=== PATIENT | female | born 1990 | race Caucasian/White ===

== ENCOUNTER 2018-06-30 17:39 | Emergency (ER) | payer OTHER ==
--- NOTE | 2018-06-30 19:16 | ED ---
Abdominal Pain HPI - General Source: patient, RN notes reviewed, old records reviewed Mode of arrival: ambulatory Limitations: no limitations <Magdalena Magana - Last Filed: 07/01/18 14:39> <Hailey Ham - Last Filed: 07/03/18 02:05> - General Chief Complaint: Abdominal Pain Stated Complaint: Stomach pain/ Time Seen by Provider: 06/30/18 19:02 - History of Present Illness Initial Comments: Patient is a 27-year-old female who presents emergency room today with complaints of left-sided abdominal pain times one day. Patient reports that she is approximately 6 weeks . Patient reports that her pain seems to radiate from her left lower quadrant towards her groin. Patient states that she 's had no vaginal bleeding. She had one previous miscarriage. She does not have an [employer] SALESPERSON as of this time, but she does plan to follow-up with Dr. Gonzales. Patient states that she has had no nausea that she's had some episodes of vomiting with early . Patient states that she has had no fevers or chills. She denies any dysuria hematuria. (Magdalena Magana) - Related Data Home Medications Medication Instructions Recorded Confirmed Albuterol Inhaler [Ventolin Hfa 2 puff INHALATION RT-Q6H PRN 06/30/18 06/30/18 Inhaler] Pnv No.95/Ferrous Fum/Folic AC 1 tab PO DAILY 06/30/18 06/30/18 [ Multivitamin Tablet] Allergies Allergy/AdvReac Type Severity Reaction Status Date / Time No Known Allergies Allergy Verified 06/30/18 18:58 Review of Systems ROS Other: All systems not noted in ROS Statement are negative. <Magdalena Magana - Last Filed: 07/01/18 14:39> ROS Other: All systems not noted in ROS Statement are negative. <Hailey Ham - Last Filed: 07/03/18 02:05> ROS Statement: Those systems with pertinent positive or pertinent negative responses have been documented in the HPI. Past Medical History Past Medical History: No Reported History History of Any Multi-Drug Resistant Organisms: MRSA Date of last positivie culture/infection: 2003 MDRO Source:: leg Past Surgical History: No Surgical Hx Reported Past Psychological History: Depression Smoking Status: Current every day smoker Past Alcohol Use History: None Reported Past Drug Use History: Marijuana <Magdalena Magana - Last Filed: 07/01/18 14:39> General Exam Limitations: no limitations General appearance: alert, in no apparent distress Head exam: Present: atraumatic, normocephalic, normal inspection Eye exam: Present: normal appearance, PERRL, EOMI. Absent: scleral icterus, conjunctival injection, periorbital swelling ENT exam: Present: normal exam, mucous membranes moist Neck exam: Present: normal inspection. Absent: tenderness, meningismus, lymphadenopathy Respiratory exam: Present: normal lung sounds bilaterally. Absent: respiratory distress, wheezes, rales, rhonchi, stridor Cardiovascular Exam: Present: regular rate, normal rhythm, normal heart sounds. Absent: systolic murmur, diastolic murmur, rubs, gallop, clicks GI/Abdominal exam: Present: soft, normal bowel sounds. Absent: distended, tenderness, guarding, rebound, rigid Extremities exam: Present: normal inspection, full ROM, normal capillary refill. Absent: tenderness, pedal edema, joint swelling, calf tenderness Back exam: Present: normal inspection Neurological exam: Present: alert, oriented X3, CN II-XII intact Psychiatric exam: Present: normal affect, normal mood Skin exam: Present: warm, dry, intact, normal color. Absent: rash <Magdalena Magana - Last Filed: 07/01/18 14:39> <Hailey Ham - Last Filed: 07/03/18 02:05> - General Exam Comments Initial Comments: 27-year-old female. Alert and oriented. No distress. (Magdalena Magana) Vital Signs 06/30/18 06/30/18 18:23 21:02 Temperature 99.5 F 98.6 F Pulse Rate 88 86 Respiratory 16 18 Rate Blood Pressure 100/56 126/78 O2 Sat by Pulse 100 98 Oximetry Medical Decision Making - Lab Data Result diagrams: 06/30/18 20:05 06/30/18 20:05 - Radiology Data Radiology results: report reviewed <Magdalena Magana - Last Filed: 07/01/18 14:39> - Lab Data Result diagrams: 06/30/18 20:05 06/30/18 20:05 <Hailey Ham P - Last Filed: 07/03/18 02:05> - Medical Decision Making 27 year old female presetns with left sided abdominal pain for one day, she complains of some constiaption. She is 6 weeks . US shows viable IUP. Patient denies bleeding, and refuses pelvic exam. UA is normal. Labs are unermarkable. Patient has no other complaints. Patient informed symptoms related to constipation. She should follow up with PCP and OB. Return paramters discussed. (Mgadalena Magana) I was available for consultation in the emergency department. The history and physical exam were done by the midlevel provider. I was consulted for this patient's care. I reviewed the case with the midlevel provider and based on their presentation of the patient, I agree with the assessment, medical decision making and plan of care as documented. (Hailey Ham) - Lab Data Lab Results 06/30/18 06/30/18 06/30/18 Range/Units 19:30 20:05 20:05 WBC 11.6 H (3.8-10.6) k/uL RBC 3.99 (3.80-5.40) m/uL Hgb 12.8 (11.4-16.0) gm/dL Hct 38.3 (34.0-46.0) % MCV 96.0 (80.0-100.0) fL MCH 32.1 (25.0-35.0) pg MCHC 33.4 (31.0-37.0) g/dL RDW 11.9 (11.5-15.5) % Plt Count 289 (150-450) k/uL Neutrophils % 66 % Lymphocytes % 27 % Monocytes % 3 % Eosinophils % 2 % Basophils % 0 % Neutrophils # 7.6 (1.3-7.7) k/uL Lymphocytes # 3.2 (1.0-4.8) k/uL Monocytes # 0.4 (0-1.0) k/uL Eosinophils # 0.3 (0-0.7) k/uL Basophils # 0.0 (0-0.2) k/uL PT (9.0-12.0) sec INR (<1.2) APTT (22.0-30.0) sec Sodium (137-145) mmol/L Potassium (3.5-5.1) mmol/L Chloride (98-107) mmol/L Carbon Dioxide (22-30) mmol/L Anion Gap mmol/L BUN (7-17) mg/dL Creatinine (0.52-1.04) mg/dL Est GFR (CKD-EPI)AfAm (>60 ml/min/1.73 sqM) Est GFR (CKD-EPI)NonAf (>60 ml/min/1.73 sqM) Glucose (74-99) mg/dL Calcium (8.4-10.2) mg/dL Total Bilirubin (0.2-1.3) mg/dL AST (14-36) U/L ALT (9-52) U/L Alkaline Phosphatase (38-126) U/L Total Protein (6.3-8.2) g/dL Albumin (3.5-5.0) g/dL HCG, Quant mIU/mL Urine Color Light Yellow Urine Appearance Clear (Clear) Urine pH 6.5 (5.0-8.0) Ur Specific [place] 1.005 (1.001-1.035) Urine Protein Negative (Negative) Urine Glucose (UA) Negative (Negative) Urine Ketones Trace H (Negative) Urine Blood Negative (Negative) Urine Nitrite Negative (Negative) Urine Bilirubin Negative (Negative) Urine Urobilinogen <2.0 (<2.0) mg/dL Ur Leukocyte Esterase Negative (Negative) Blood Type A Positive Blood Type Recheck [facility] ONLY 06/30/18 06/30/18 Range/Units 20:05 20:05 WBC (3.8-10.6) k/uL RBC (3.80-5.40) m/uL Hgb (11.4-16.0) gm/dL Hct (34.0-46.0) % MCV (80.0-100.0) fL MCH (25.0-35.0) pg MCHC (31.0-37.0) g/dL RDW (11.5-15.5) % Plt Count (150-450) k/uL Neutrophils % % Lymphocytes % % Monocytes % % Eosinophils % % Basophils % % Neutrophils # (1.3-7.7) k/uL Lymphocytes # (1.0-4.8) k/uL Monocytes # (0-1.0) k/uL Eosinophils # (0-0.7) k/uL Basophils # (0-0.2) k/uL PT 10.6 (9.0-12.0) sec INR 1.0 (<1.2) APTT 26.2 (22.0-30.0) sec Sodium 138 (137-145) mmol/L Potassium 3.8 (3.5-5.1) mmol/L Chloride 107 (98-107) mmol/L Carbon Dioxide 23 (22-30) mmol/L Anion Gap 8 mmol/L BUN 8 (7-17) mg/dL Creatinine 0.46 L (0.52-1.04) mg/dL Est GFR (CKD-EPI)AfAm >90 (>60 ml/min/1.73 sqM) Est GFR (CKD-EPI)NonAf >90 (>60 ml/min/1.73 sqM) Glucose 106 H (74-99) mg/dL Calcium 9.1 (8.4-10.2) mg/dL Total Bilirubin 0.3 (0.2-1.3) mg/dL AST 22 (14-36) U/L ALT 22 (9-52) U/L Alkaline Phosphatase 30 L (38-126) U/L Total Protein 6.4 (6.3-8.2) g/dL Albumin 3.7 (3.5-5.0) g/dL HCG, Quant 36375.7 mIU/mL Urine Color Urine Appearance (Clear) Urine pH (5.0-8.0) Ur Specific [place] (1.001-1.035) Urine Protein (Negative) Urine Glucose (UA) (Negative) Urine Ketones (Negative) Urine Blood (Negative) Urine Nitrite (Negative) Urine Bilirubin (Negative) Urine Urobilinogen (<2.0) mg/dL Ur Leukocyte Esterase (Negative) Blood Type Blood Type Recheck - Radiology Data US hosws IUP measuring 6 weeks. (Magdalena Magana) Disposition Is patient prescribed a controlled substance at d/c from ED?: No Time of Disposition: 20:44 <Magdalena Magana - Last Filed: 07/01/18 14:39> <Hailey Ham - Last Filed: 07/03/18 02:05> Clinical Impression: Abdominal pain affecting , Constipation Disposition: HOME SELF-CARE Condition: Good Instructions: Abdominal Pain in (ED) Additional Instructions: Patient is encouraged to drink plenty of water and have a diet rich in fruits and vegetables or GERD bowel movements. There is any bleeding more severe pain Patient should return for reevaluation. Patient should have close follow-up with primary care physician as well as [employer]. Referrals: None,Stated [Primary Care Provider] - 1-2 days Mary Sofia MD [STAFF PHYSICIAN] - 1-2 days Kelsie Putnam DO [Doctor of Osteopathic Medicine] - 1-2 days
[2018-06-30 19:54] LABS: Appearance,Urine Clear (Clear); Bilirubin,Urine Negative (Negative); Blood,Urine Negative (Negative); Color,Urine Light Yellow; Glucose,Urine (UA) Negative (Negative); Ketones,Urine Trace (Negative); Leukocyte Esterase,Urine Negative (Negative); Nitrite,Urine Negative (Negative); PH, Urine 6.5 (5.0-8.0); Protein,Urine Negative (Negative); Specific Gravity,Urine 1.005 (1.001-1.035); Urobilinogen,Urine <2.0 mg/dL (<2.0)
--- NOTE | 2018-06-30 20:08 | US ---
EXAMINATION TYPE: Transabdominal DATE OF EXAM: 09/28/17 COMPARISON: NONE CLINICAL HISTORY: Pain. LLQ pain EXAM PERFORMED: Transabdominal (TA) EXAM MEASUREMENTS: GESTATIONAL AGE / DATING Physician Established: Not yet established Dates by LMP: (5 weeks/4 days) EDC: Dates by First Scan: No previous this is first scan Dates by Current Scan for: ( 6 weeks/6 days) EDC: 02/17/2019 MATERNAL ANATOMY Uterus: 9.0 x 6.2 x 6.0 cm Right Ovary: 2.9 x 1.3 x 1.8 cm Left Ovary: 2.9 x 1.9 x 2.3 cm Post CDS / Adnexa: wnl Presence of free fluid: no Presence of corpus luteal cyst: Yes left ovary Presence of subchorionic bleed: no GESTATION / SURVEY CRL: 0.85 cm (6 weeks/6 days) Yolk Sac (normal less than 6mm): 2mm Heart Rate: 144 bpm Rhythm: Normal IUP: Viable IUP Beta HcG (if available): Not available at this time Viable IUP 6w6d DALJIT 02/17/2019 HR 144 BPM IMPRESSION: No complicating process seen.
[2018-06-30 20:16] LABS: Basophils % (A) 0 %; Eosinophils # (A) 0.3 k/uL (0-0.7); Eosinophils % (A) 2 %; HCT 38.3 % (34.0-46.0); HGB 12.8 gm/dL (11.4-16.0); Lymphocytes # (A) 3.2 k/uL (1.0-4.8); Lymphocytes % (A) 27 %; MCH 32.1 pg (25.0-35.0); MCHC 33.4 g/dL (31.0-37.0); Mean Platelet Volume 6.7; Monocytes # (A) 0.4 k/uL (0-1.0); Monocytes % (A) 3 %; Neutrophils # (A) 7.6 k/uL (1.3-7.7); Neutrophils % (A) 66 %; Platelet Count 289 k/uL (150-450); RBC 3.99 m/uL (3.80-5.40); RDW 11.9 % (11.5-15.5); WBC 11.6 k/uL (3.8-10.6)
[2018-06-30 20:27] LABS: Partial Thromboplastin Time 26.2 sec (22.0-30.0); Prothrombin Time 10.6 sec (9.0-12.0)
[2018-06-30 20:28] LABS: ALT 22 U/L (9-52); AST 22 U/L (14-36); Albumin 3.7 g/dL (3.5-5.0); Alkaline Phosphatase 30 U/L (38-126); Anion Gap 8 mmol/L; Blood Urea Nitrogen 8 mg/dL (7-17); Calcium 9.1 mg/dL (8.4-10.2); Carbon Dioxide 23 mmol/L (22-30); Chloride 107 mmol/L (98-107); Glucose 106 mg/dL (74-99); Potassium 3.8 mmol/L (3.5-5.1); Sodium 138 mmol/L (137-145); Total Bilirubin 0.3 mg/dL (0.2-1.3); Total Protein 6.4 g/dL (6.3-8.2)
[2018-06-30 21:04] VITALS: BP 126/78; PULSE 86; RESP 18; TEMP 98.6
[2018-06-30 21:47] LABS: HCG,Quantitative Serum 71880.7 mIU/mL
== END 2018-06-30 21:04 | disposition home or self-care (01) ==
LOC: EC 17:39
DX: O99.611 Diseases of the digestive system complicating pregnancy, first trimester (principal); K59.00 Constipation, unspecified; O99.89 Other specified diseases and conditions complicating pregnancy, childbirth and the puerperium; R10.32 Left lower quadrant pain; O21.9 Vomiting of pregnancy, unspecified; O99.331 Smoking (tobacco) complicating pregnancy, first trimester; F17.200 Nicotine dependence, unspecified, uncomplicated; Z3A.01 Less than 8 weeks gestation of pregnancy; Z53.29 Procedure and treatment not carried out because of patient's decision for other reasons; Z86.14 Personal history of Methicillin resistant Staphylococcus aureus infection
CPT/HCPCS: 36415; 76801; 80053; 81003; 84702; 85025; 85610; 85730; 86900; 86901; 87086; 99284

== ENCOUNTER 2019-01-19 17:55 | Outpatient (CLI) | payer OTHER ==
[2019-01-19] MEDS ORDERED: LACTATED RINGERS 1,000 ML IV SCH (19:00)
[2019-01-19 19:15] LABS: Appearance,Urine Cloudy (Clear); Bacteria,Urine Rare /hpf; Bilirubin,Urine Negative (Negative); Blood,Urine Small (Negative); Color,Urine Yellow; Glucose,Urine (UA) Negative (Negative); Ketones,Urine Negative (Negative); Leukocyte Esterase,Urine Moderate (Negative); Mucus,Urine Moderate /hpf; Nitrite,Urine Negative (Negative); Protein,Urine 1+ (Negative); RBC,Urine 6 /hpf (0-5); Specific Gravity,Urine 1.034 (1.001-1.035); Squamous Epithelial Cell,Urine 10 /hpf (0-4); WBC,Urine 11 /hpf (0-5)
[2019-01-19 19:16] VITALS: BP 110/57; PULSE 86; RESP 17; TEMP 97.3
--- NOTE | 2019-02-12 11:24 | P.MSEPDOC ---
Presenting Problems - Arrival Data Date of Arrival on Unit: 01/19/19 Time of Arrival on Unit: 17:55 Mode of Transport: Wheelchair - Complaint OB-Reason for Admission/Chief Complaint: Pain Comment: Pt states having pain top of abdomen, non radiating. Pain is constant dull pain. per pt that occasionally is shooting/stingy pain rating 6-7 out of 10. Pt spoke with Dr. Morgan at last visit who had discussed with pt that it was most likely stretching of the uterus. Medical History - Information : 1 Para: 0 Term: 0 : 0 Abortions: Spontaneous or Elective: 0 Number of Living Children: 0 - Gestational Age Gestational Age by DALJIT (wks/days): 35 Weeks and 6 Days - History Complications: Smoker Review of Systems - Review of Systems Constitutional: No problems Breast: No problems ENT: No problems Cardiovascular: No problems Respiratory: No problems Gastrointestinal: No problems Genitourinary: No problems Musculoskeletal: No problems Neurological: No problems Skin: No problems Vital Signs - Temperature Temperature: 97.3 F Temperature Source: Temporal Artery Scan - Pulse Right Brachial Pulse Rate: 86 Pulse Assessment Method: Automatic Cuff - Respirations Respiratory Rate: 17 Oxygen Delivery Method: Room Air O2 Sat by Pulse Oximetry: 97 - Blood Pressure Right Arm Blood Pressure: 110/57 Blood Pressure Mean: 74 Blood Pressure Source: Automatic Cuff Medical Screen Scoring (Pre) - Cervical Exam Membranes: Intact - Uterine Contractions Frequency: > 5 minutes apart = 1 Duration: > 40 seconds = 2 Intensity: N/A - Maternal Vital Signs Maternal Temperature: N/A Maternal Blood Pressure: N/A Signs of Preeclampsia: N/A Maternal Respirations: N/A - Maternal Trauma Maternal Trauma: N/A - Assessment - Baby A Baseline FHR: 145 Heart Rate - NICHD Category: Category I (Normal) = 0 NST: Reactive Position: N/A Station: N/A - Total Score - Baby A Total Score - Baby A: 3 - Total Score - Baby B Total Score - Baby B: 3 - Total Score - Baby C Total Score - Baby C: 3 - Level of Risk - Baby A Level of Risk - Baby A: Low (0-5) - Level of Risk - Baby B Level of Risk - Baby B: Low (0-5) - Level of Risk - Baby C Level of Risk - Baby C: Low (0-5) Physician Notification (Pre) - Physician Notified Physician Notified Date: 01/19/19 Physician Notified Time: 18:50 Physician/Practitioner Notifed:: Dr. Bush Spoke With: Dr. Bush New Order Received: Yes (see order sets) Disposition - Disposition Discharge Date: 01/19/19 Discharge Time: 20:25 I agree with the RN Medical Screening Exam: No Physician's MSE Comment: Inadequate documentation Risk & Benefit of care provided described in d/c instruction: No Diagnosis: OTHER SPECIFIED COMPLICATIONS OF LABOR AND DELIVERY
== END 2019-01-19 20:25 | disposition home or self-care (01) ==
LOC: FBPOP 17:55
PROVIDERS: ATTEND Obstetrics & Gynecology
DX: O75.89 Other specified complications of labor and delivery (principal); Z3A.35 35 weeks gestation of pregnancy
CPT/HCPCS: 59025; 96360; 81001; G0463; 99213

== ENCOUNTER 2019-02-10 12:19 | Inpatient (IN) | payer OTHER ==
[2019-02-10] MEDS ORDERED: DINOPROSTONE 10 MG INSERT.ER VAGINAL ONE (13:48)
[2019-02-10] MEDS ORDERED: TERBUTALINE 1 MG/ML VIAL SQ PRN (14:26)
[2019-02-10] MEDS ORDERED: OXYTOCIN 10 UNIT/ML 1 ML VIAL IM PRN (14:26)
[2019-02-10] MEDS ORDERED: LIDOCAINE 0.5% (PF) 5 MG/ML (50 ML SDV) SQ PRN (14:26)
[2019-02-10] MEDS ORDERED: METHYLERGONOVINE 0.2 MG/ML 1 ML AMP IM PRN (14:26)
[2019-02-10] MEDS ORDERED: CARBOPROST TROMETHAMINE 250 MCG/ML 1 ML AMP IM PRN (14:26)
[2019-02-10] MEDS ORDERED: PENICILLIN G POTASSIUM 5,000,000 UNIT in DEXTROSE 5% IN WATER 100 ML IVPB STA ×2 (14:26)
[2019-02-10] MEDS ORDERED: OXYTOCIN 30 UNITS/500 ML NS 30 UNIT in SALINE 1 500ML.BAG IV SCH (14:30)
--- NOTE | 2019-02-10 14:39 | P.HPOB ---
History of Present Illness H&P Date: 02/10/19 Chief Complaint: IUGR This is a 28 year old 2 para 0010 woman with an estimated due date of 02/17/2019 based on the first trimester ultrasound. She is admitted at 39 weeks gestation for induction of labor secondary to findings of head circumference less than 1% and estimated weight less than 10%. Her cervix is unfavorable therefore she is admitted for delivery, cervical ripening with Cervidil followed by Pitocin and artificial rupture of membranes as indicated. The has otherwise been complicated by unexplained polyhydramnios at 19 weeks that spontaneously resolved at 29 weeks. MARA done in the office today was 13.3 cm with an incidental biophysical profile of 8 out of 8 and a reactive NST. She is also known group B strep positive. She complains today of some mild cramping and reports good movement. She denies on leakage of fluids or vaginal bleeding. Obstetric history: Missed AB in the first trimester in 2016 Laboratory data: Blood type A positive, antibody screen negative, rubella nonimmune, B-year-old nonreactive, hepatitis B surface antigen negative, HIV negative, gonorrhea and clinic cultures negative, glucose tolerance testing within normal limits, group B strep cultures positive. She is a current every day smoker and does have a previous history of marijuana use. Review of Systems All systems: negative Past Medical History Past Medical History: No Reported History History of Any Multi-Drug Resistant Organisms: MRSA Date of last positivie culture/infection: 2003 MDRO Source:: leg Past Surgical History: No Surgical Hx Reported Smoking Status: Current every day smoker Past Drug Use History: Marijuana Medications and Allergies Home Medications Medication Instructions Recorded Confirmed Type Pnv No.95/Ferrous Fum/Folic AC 1 tab PO DAILY 06/30/18 01/19/19 History [ Multivitamin Tablet] Allergies Allergy/AdvReac Type Severity Reaction Status Date / Time No Known Allergies Allergy Verified 01/19/19 18:19 Exam Intake and Output 02/09/19 02/10/19 02/10/19 22:59 06:59 14:59 Other: Weight 64.864 kg This is a pleasant, visibly gravid on female in no apparent distress. HEENT exam is unremarkable. Her breathing is unlabored and the heart is a regular rate and rhythm. The abdomen is gravid with a fundal height of 35 cm. Uterus is nontender. On pelvic exam the cervix is 1 cm dilated 50% effaced and the vertex in the -3 station. Extremities are free of any on swelling. heart tones are category 1 by external monitoring and she is irregularly carina. Assessment and Plan (1) IUGR (intrauterine growth restriction) Current Visit: Yes Status: Acute Code(s): GEJ7264 - SNOMED Code(s): 04922378 (2) 39 weeks gestation of Current Visit: Yes Status: Acute Code(s): Z3A.39 - 39 WEEKS GESTATION OF SNOMED Code(s): 79581095 (3) Tobacco abuse Current Visit: Yes Status: Acute Code(s): Z72.0 - TOBACCO USE SNOMED Code(s): 521943871 (4) GBS (group B Streptococcus carrier), +RV culture, currently Current Visit: Yes Status: Acute Code(s): O99.820 - STREPTOCOCCUS B CARRIER STATE COMPLICATING SNOMED Code(s): 0014350674990 Plan: This is a 28-year-old 2 para 0010 woman who is admitted at 39-2/7 weeks' gestation by first trimester ultrasound. She has findings of severe IUGR with head circumference less than the 1st percentile and estimated weight overall less than the 10th percentile. testing has been reassuring with a BPP of 8 out of 8 today and an MARA of 13.3 cm. That said at 39 weeks gestation on risk of IUFD is present therefore I have recommended on induction of labor. Her cervix is unfavorable therefore Cervidil has been placed. This ovary removed at 12 hours and Pitocin induction of labor initiated per protocol. She will need group B strep prophylactic antibiotics in active labor. status is currently reassuring by external monitoring testing done today. Patient has been counseled regarding risk benefits and alternatives were course of action and is in agreement with the above plan.
[2019-02-10 16:12] VITALS: BMI 27.0
[2019-02-10 17:23] LABS: Basophils % (A) 0 %; Eosinophils # (A) 0.2 k/uL (0-0.7); Eosinophils % (A) 2 %; HCT 37.6 % (34.0-46.0); HGB 12.8 gm/dL (11.4-16.0); Lymphocytes # (A) 2.7 k/uL (1.0-4.8); Lymphocytes % (A) 20 %; MCH 33.8 pg (25.0-35.0); MCHC 34.1 g/dL (31.0-37.0); MCV 99.1 fL (80.0-100.0); Mean Platelet Volume 8.5; Monocytes # (A) 0.5 k/uL (0-1.0); Monocytes % (A) 4 %; Neutrophils # (A) 9.9 k/uL (1.3-7.7); Neutrophils % (A) 74 %; Platelet Count 245 k/uL (150-450); RBC 3.79 m/uL (3.80-5.40); RDW 12.4 % (11.5-15.5); WBC 13.4 k/uL (3.8-10.6)
[2019-02-10] MEDS ORDERED: PENICILLIN G POTASSIUM 2,500,000 UNIT in DEXTROSE 5% IN WATER 100 ML IVPB SCH ×2 (18:00)
[2019-02-10] MEDS ORDERED: CITRIC ACID-SODIUM CITRATE 15 ML CUP PO ONE (18:26)
[2019-02-10] MEDS ORDERED: KETOROLAC 30 MG/ML 1 ML VIAL ONE (18:44)
[2019-02-10] MEDS ORDERED: ONDANSETRON 4 MG/2 ML VIAL ONE (18:44)
[2019-02-10] MEDS ORDERED: OXYTOCIN 10 UNIT/ML 1 ML VIAL ONE (18:44)
[2019-02-10] MEDS ORDERED: NALBUPHINE 10 MG/ML (1 ML AMP) ONE (18:44)
[2019-02-10] MEDS ORDERED: ePHEDrine SULFATE/0.9% NACL/PF 50 MG/5 ML SYRINGE IV ONE (18:44)
[2019-02-10] MEDS ORDERED: MORPHINE SULFATE (PF) 0.3 MG/0.3 ML SYR ONE (18:44)
[2019-02-10] MEDS ORDERED: fentaNYL (PF) 50 MCG/ML 2 ML AMP ONE (18:44)
[2019-02-10] MEDS: LACTATED RINGERS 1,000 ML IV SCH ×2 (19:22→20:50)
[2019-02-10] MEDS ORDERED: HYDROcodone/APAP 5-325MG 1 EACH TAB PO PRN (19:27)
[2019-02-10] MEDS ORDERED: METOCLOPRAMIDE 5 MG/ML 2 ML VIAL IVP PRN (19:27)
[2019-02-10] MEDS ORDERED: diphenhydrAMINE 50 MG/ML 1 ML VIAL IVP PRN ×2 (19:27)
[2019-02-10] MEDS ORDERED: ZOLPIDEM 5 MG TAB PO PRN (19:27)
[2019-02-10] MEDS ORDERED: ONDANSETRON 4 MG/2 ML VIAL IVP PRN ×2 (19:27→20:26)
[2019-02-10] MEDS ORDERED: NALOXONE 0.4 MG/ML 1 ML VIAL IV PRN ×2 (19:27→20:26)
[2019-02-10] MEDS ORDERED: diphenhydrAMINE 25 MG CAP PO PRN (19:27)
[2019-02-10] MEDS ORDERED: KETOROLAC 30 MG/ML 1 ML VIAL IVP PRN (19:27)
[2019-02-10] MEDS ORDERED: MEASLES-MUMPS-RUBELLA VACC/PF 12,500 UNIT/0.5 ML VIAL SQ ONE (19:27)
[2019-02-10] MEDS ORDERED: diphenhydrAMINE 50 MG CAP PO PRN (19:27)
[2019-02-10] MEDS ORDERED: OXYTOCIN 20 UNITS/1000 ML NS 1,000 ML IV SCH (19:30)
--- NOTE | 2019-02-10 19:33 | P.OP ---
Date of Procedure: 02/10/19 Preoperative Diagnosis: IUP at 39 weeks gestation IUGR Unfavorable cervix Nonreassuring heart rate pattern remote from delivery Postoperative Diagnosis: Same Procedure(s) Performed: Primary low transverse section Anesthesia: spinal Surgeon: Kesha Perez Pecan Sheller #1: Samira Gonzales Estimated Blood Loss (ml): 400 IV fluids (ml): 100 Urine output (ml): 300 Pathology: other (Placenta) Condition: stable Disposition: PACU Indications for Procedure: 28-year-old 2 para 0 woman admitted at 39-0/7 weeks gestation for induction of labor secondary to severe IUGR with head circumference less than the 1st percentile on recent ultrasound. Following admission she underwent Cervidil induction of labor. The Cervidil was in place for less than 3 hours and the patient had 2 bradycardic events each lasting approximately 5 minutes down to the 80 bpm. Overall she had good variability of the heart tones but was remote from delivery. The Cervidil was removed. It did not feel as a was present to the reintroduced Cervidil or start Pitocin. Therefore she was recommended to have a primary low transverse section. This of the procedure were reviewed with the patient include bleeding, infection, transfusion, injury to bowel bladder or ureters or other structures and or the infant. She understands implications for further pregnancies as well. Consent was obtained. Operative Findings: Male in the vertex presentation with Apgars of 9 at 1 minute and 9 at 5 minutes weighing 5 lbs. 6 oz., 2440 g. Head circumference 12.5 inches. Normal- appearing bilateral uterus tubes and ovaries. Description of Procedure: After the patient was met preoperatively and all questions were answered, she was taken to the operating room where spinal anesthetic was administered without incident. She was then positioned, prepped and draped in the dorsal supine position with a leftward tilt. Watson catheter was placed. After anesthetic was confirmed adequate, a low transverse skin incision was made following the pre- existing scar. This was carried down to the underlying fascia both sharply and with the electrocautery. The fascia was then incised in the midline and extended bilaterally with the Love scissors. The superior aspect of the fascial incision was elevated and the underlying rectus muscles dissected off sharply and with the electrocautery. The inferior aspect of the fascial incision was also elevated and the underlying rectus muscles dissected off sharply. The muscles were adherent in the midline. These were bluntly and the peritoneum was tented up with hemostats. The peritoneum was entered sharply with the Metzenbaum scissors. The peritoneal incision was extended inferiorly and superiorly with good visualization of the bladder. The bladder blade was placed. The vesicouterine peritoneum was identified, tented up and entered sharply, the bladder flap was created both sharply and digitally. A low transverse uterine incision was then made sharply and carried down to the underlying amniotic membranes. Membranes were ruptured and clear fluid was noted. The uterine incision was extended bilaterally bluntly. The 's head was delivered from the incision without difficulty. The nose and mouth were bulb suctioned. The rest of the infant was delivered onto the field without difficulty. And cut and the was taken to the warmer. An intact, three-vessel cord placenta was then manually removed and the uterus was exteriorized. The uterus was cleared of all clot and debris. The uterine incision was delineated with Collazo clamps. The uterine incision was then closed in a running locked fashion with 0 Vicryl suture. An imbricating layer of the same was placed. Additional [id number] sutures were placed where necessary along the incision for hemostasis. The uterus was then returned to the abdomen and the gutters were cleared of all clot and debris. The uterine incision was reinspected and Bovie electrocautery was utilized were necessary for hemostasis. The fascial edges, peritoneal edges and rectus muscles were inspected and Bovie electrocautery utilized were necessary for hemostasis. The fascia was then closed in a running fashion with 0 Vicryl suture. The subcuticular tissue was copiously suction irrigated and Bovie electrocautery utilized were necessary for hemostasis. 3-0 Vicryl suture was utilized to reapproximate the subcuticular tissue. The skin was then closed in a subcutaneous fashion with 4-0 Vicryl suture. All counts reported to me as correct by the operating room staff at the end of the procedure. The patient received antibiotics preoperatively and Pitocin following cord clamp. Mother and were both transported from the room in stable condition.
[2019-02-10] MEDS ORDERED: MORPHINE SULFATE 2 MG/ML SYRINGE IVP PRN (20:26)
[2019-02-11] MEDS: SENNOSIDES-DOCUSATE SODIUM 1 EACH TAB PO SCH ×3 (05:47→21:04)
[2019-02-11] MEDS: LACTATED RINGERS 1,000 ML IV SCH ×5 (06:31→23:09)
[2019-02-11 06:56] LABS: Basophils % (A) 0 %; Eosinophils # (A) 0.2 k/uL (0-0.7); Eosinophils % (A) 1 %; HCT 32.8 % (34.0-46.0); HGB 11.3 gm/dL (11.4-16.0); Lymphocytes # (A) 1.9 k/uL (1.0-4.8); Lymphocytes % (A) 14 %; MCH 33.7 pg (25.0-35.0); MCHC 34.4 g/dL (31.0-37.0); Mean Platelet Volume 8.4; Monocytes # (A) 0.6 k/uL (0-1.0); Monocytes % (A) 4 %; Neutrophils # (A) 10.5 k/uL (1.3-7.7); Neutrophils % (A) 79 %; Platelet Count 213 k/uL (150-450); RBC 3.35 m/uL (3.80-5.40); WBC 13.3 k/uL (3.8-10.6)
--- NOTE | 2019-02-11 10:47 | P.PNOBGPC ---
Subjective - Subjective Principal diagnosis: Postop day 1 Interval history: Required straight catheter 1 to empty bladder with Watson catheter removed. Otherwise feeling well. Patient reports: Reports appetite normal, Reports pain well controlled, Reports ambulating normally, Denies voiding normally, Denies dizzy ambulation [place]: doing well Objective - Vital Signs Latest vital signs: Vital Signs Temp Pulse Resp BP Pulse Ox 02/11/19 07:00 16 02/11/19 05:00 16 99 02/11/19 03:00 98.6 F 76 18 99/56 97 02/11/19 01:45 98.5 F 84 16 105/55 02/11/19 01:26 18 97 02/10/19 21:45 98.2 F 70 16 112/61 100 02/10/19 21:26 16 98 02/10/19 21:15 68 16 111/55 99 02/10/19 20:45 63 16 101/55 98 02/10/19 20:30 72 16 103/55 98 02/10/19 20:26 16 98 02/10/19 20:15 68 16 103/57 97 02/10/19 20:00 75 16 105/58 97 02/10/19 19:45 65 16 111/57 97 02/10/19 19:30 97.4 F L 60 16 109/58 96 02/10/19 13:45 98.2 F 58 L 16 112/64 Intake and Output 02/10/19 02/11/19 02/11/19 22:59 06:59 14:59 Output Total 900 800 Balance -900 -800 Output: Urine 900 800 Uretheral (Watson) 400 Other: Voiding Method Indwelling Catheter # Voids 0 # Emeses 0 - Exam Extremities: Present: normal. Absent: edema Abdomen: Present: normal appearance, soft Incision: Present: normal, dry, dressed Uterus: Present: normal, firm. Absent: tenderness - Labs Labs: Abnormal Lab Results - Last 24 Hours (Table) 02/10/19 02/11/19 Range/Units 15:45 06:43 WBC 13.4 H 13.3 H (3.8-10.6) k/uL RBC 3.79 L 3.35 L (3.80-5.40) m/uL Hgb 11.3 L (11.4-16.0) gm/dL Hct 32.8 L (34.0-46.0) % Neutrophils # 9.9 H 10.5 H (1.3-7.7) k/uL Assessment and Plan (1) IUGR (intrauterine growth restriction) Current Visit: Yes Status: Acute Code(s): NIB5655 - SNOMED Code(s): 42188732 (2) 39 weeks gestation of Current Visit: Yes Status: Acute Code(s): Z3A.39 - 39 WEEKS GESTATION OF SNOMED Code(s): 60514151 (3) Tobacco abuse Current Visit: Yes Status: Acute Code(s): Z72.0 - TOBACCO USE SNOMED Code(s): 320315570 (4) GBS (group B Streptococcus carrier), +RV culture, currently Current Visit: Yes Status: Acute Code(s): O99.820 - STREPTOCOCCUS B CARRIER STATE COMPLICATING SNOMED Code(s): 2419581526396 (5) Non-reassuring heart rate or rhythm affecting management of fetus Current Visit: Yes Status: Acute Code(s): CHZ7529 - SNOMED Code(s): 036415272 (6) S/P section Current Visit: Yes Status: Acute Code(s): Z98.891 - HISTORY OF UTERINE SCAR FROM PREVIOUS SURGERY SNOMED Code(s): 197852098 Plan: Postop day 1 status post primary low transverse section for nonreassuring heart tones in a known IUGR remote from delivery. She is recovering well. Routine management.
[2019-02-11] MEDS: IBUPROFEN 600 MG TAB PO PRN ×2 (16:16→23:54)
--- NOTE | 2019-02-11 19:27 | P.PN ---
Progress Note - Text Progress Note Date: 02/11/19 Postoperative day 1 status post section under spinal anesthesia, and i ntrathecal morphine given for postoperative analgesia, patient doing well, there is no anesthesia related complications, Patient had no headache, vital signs stable , Assessment and plan= postop day 1 status post , doing well there is no anesthesia related complication.
[2019-02-12] MEDS: LACTATED RINGERS 1,000 ML IV SCH ×4 (04:43→21:19)
[2019-02-12] MEDS: ACETAMINOPHEN TAB 325 MG TAB PO PRN (05:57)
[2019-02-12] MEDS: SENNOSIDES-DOCUSATE SODIUM 1 EACH TAB PO SCH ×2 (09:49→21:20)
[2019-02-12] MEDS: IBUPROFEN 600 MG TAB PO PRN ×2 (09:50→16:34)
--- NOTE | 2019-02-12 10:40 | P.PNOBGPC ---
Subjective - Subjective Principal diagnosis: Postop day 2 Interval history: Postop day 2 status post primary low transverse section for nonreassuring status and IUGR . The infant was exhibiting possible some signs of withdrawal and urine tox screen of was positive for methamphetamines. The patient is adamant that she has never done meth before , she has no known exposures to any other illegal substances or medications recently. She used marijuana early in the but last used was in November. She is on probation and Brian's a urine specimen once weekly with her prolapse office her and they have all been negative. Last maternal negative urine tox screen was 02/03/2019 per her report. Patient reports: Reports appetite normal, Reports voiding normally, Reports pain well controlled, Reports ambulating normally [place]: doing well (Monitoring for withdrawal in special care nursery.) Objective - Vital Signs Latest vital signs: Vital Signs Temp Pulse Resp BP Pulse Ox 02/12/19 08:00 98.3 F 81 18 120/72 98 02/12/19 00:00 98 F 67 18 102/57 98 02/11/19 20:00 97.6 F 73 18 112/74 98 02/11/19 16:00 98.9 F 83 16 104/65 Intake and Output 02/11/19 02/12/19 02/12/19 22:59 06:59 14:59 Intake Total 250 Balance 250 Intake: Oral 250 Other: # Voids 1 1 - Exam Extremities: Present: normal. Absent: edema Abdomen: Present: normal appearance, soft, distention (Mild) Incision: Present: normal, dry, intact. Absent: erythematous Uterus: Present: normal, firm. Absent: tenderness Assessment and Plan (1) IUGR (intrauterine growth restriction) Current Visit: Yes Status: Acute Code(s): XWD0369 - SNOMED Code(s): 83150266 (2) 39 weeks gestation of Current Visit: Yes Status: Acute Code(s): Z3A.39 - 39 WEEKS GESTATION OF SNOMED Code(s): 60945696 (3) Tobacco abuse Current Visit: Yes Status: Acute Code(s): Z72.0 - TOBACCO USE SNOMED Code(s): 236122987 (4) GBS (group B Streptococcus carrier), +RV culture, currently Current Visit: Yes Status: Acute Code(s): O99.820 - STREPTOCOCCUS B CARRIER STATE COMPLICATING SNOMED Code(s): 1752423675152 (5) Non-reassuring heart rate or rhythm affecting management of fetus Current Visit: Yes Status: Acute Code(s): HHX6860 - SNOMED Code(s): 819766441 (6) S/P section Current Visit: Yes Status: Acute Code(s): Z98.891 - HISTORY OF UTERINE SCAR FROM PREVIOUS SURGERY SNOMED Code(s): 821101222 Plan: Postop day 2 status post primary low transverse section for nonreassuring heart tones and IUGR remote from delivery. She is recovering well. recently admitted special care nursery for monitoring for a trial signs. Had positive methamphetamine screen in the urine. Awaiting meconium tox screen. We'll check maternal urine tox screen per her plus. It will likely be positive for opioids due to her post operative state.
[2019-02-13] MEDS: SENNOSIDES-DOCUSATE SODIUM 1 EACH TAB PO SCH ×2 (08:03→19:47)
--- NOTE | 2019-02-13 09:34 | P.PNOBGPC ---
Subjective - Subjective Principal diagnosis: Postop day 3 Interval history: Continues to feel well. Frustrated and sad that infant is in the nursery. Patient reports: Reports appetite normal, Reports voiding normally, Reports pain well controlled, Reports ambulating normally [place]: doing well (In special care nursery) Objective - Vital Signs Latest vital signs: Vital Signs Temp Pulse Resp BP Pulse Ox 02/13/19 08:00 98.6 F 83 14 101/50 02/13/19 00:00 98.1 F 82 16 109/66 99 02/12/19 20:00 98.9 F 80 16 103/68 99 02/12/19 16:33 98.8 F 81 18 112/65 98 Intake and Output 02/12/19 02/13/19 02/13/19 22:59 06:59 14:59 Other: # Voids 1 2 2 # Bowel Movements 1 - Exam Extremities: Present: normal Abdomen: Present: normal appearance Incision: Present: normal Uterus: Present: normal Assessment and Plan (1) IUGR (intrauterine growth restriction) Current Visit: Yes Status: Acute Code(s): SPP5823 - SNOMED Code(s): 45751823 (2) 39 weeks gestation of Current Visit: Yes Status: Acute Code(s): Z3A.39 - 39 WEEKS GESTATION OF SNOMED Code(s): 41369803 (3) Tobacco abuse Current Visit: Yes Status: Acute Code(s): Z72.0 - TOBACCO USE SNOMED Code(s): 180631613 (4) GBS (group B Streptococcus carrier), +RV culture, currently Current Visit: Yes Status: Acute Code(s): O99.820 - STREPTOCOCCUS B CARRIER STATE COMPLICATING SNOMED Code(s): 9546565459610 (5) Non-reassuring heart rate or rhythm affecting management of fetus Current Visit: Yes Status: Acute Code(s): PGF7692 - SNOMED Code(s): 844962766 (6) S/P section Current Visit: Yes Status: Acute Code(s): Z98.891 - HISTORY OF UTERINE SCAR FROM PREVIOUS SURGERY SNOMED Code(s): 540437582 Plan: Postop taste 3 status post primary low transverse section for nonreassuring status, IUGR, remote from delivery. Infants urine tox screen came back positive for methamphetamines. Patient is adamant that she has not used or been exposed to this drug. Maternal urine drug screen and ordered yesterday still pending. Infants meconium drug screen is pending.
[2019-02-13 10:29] LABS: Amphetamine Screen,Urine Not Detected (NotDetected); Barbiturate Screen,Urine Not Detected (NotDetected); Benzodiazepines Screen,Urine Not Detected (NotDetected); Cocaine Screen,Urine Not Detected (NotDetected); Methadone Screen, Urine Not Detected (NotDetected); Opiate Screen,Urine Not Detected (NotDetected); Oxycodone Screen, Urine Not Detected (NotDetected); Phencyclidine Screen,Urine Not Detected (NotDetected); Tricyclic Antidepressant,Urine Not Detected (NotDetected); Urn Cannabinoid Scrn Not Detected (NotDetected)
[2019-02-13] MEDS: IBUPROFEN 600 MG TAB PO PRN ×3 (10:43→19:46)
[2019-02-13] MEDS: ACETAMINOPHEN TAB 325 MG TAB PO PRN (15:41)
[2019-02-13 19:27] LABS: Phencyclidine Screen,Urine Not Detected (NotDetected); Urn Cannabinoid Scrn Not Detected (NotDetected)
[2019-02-13 19:28] LABS: Amphetamine Screen,Urine Not Detected (NotDetected); Barbiturate Screen,Urine Not Detected (NotDetected); Benzodiazepines Screen,Urine Not Detected (NotDetected); Cocaine Screen,Urine Not Detected (NotDetected); Methadone Screen, Urine Not Detected (NotDetected); Opiate Screen,Urine Not Detected (NotDetected); Oxycodone Screen, Urine Not Detected (NotDetected); Tricyclic Antidepressant,Urine Not Detected (NotDetected)
[2019-02-14] MEDS: ACETAMINOPHEN TAB 325 MG TAB PO PRN (00:05)
[2019-02-14] MEDS: IBUPROFEN 600 MG TAB PO PRN ×2 (03:51→14:56)
[2019-02-14 08:45] VITALS: BP 112/76; PULSE 78; RESP 16; TEMP 98
[2019-02-14] MEDS: SENNOSIDES-DOCUSATE SODIUM 1 EACH TAB PO SCH (08:45)
--- NOTE | 2019-02-14 11:08 | P.DS ---
Providers Date of admission: 02/10/19 12:19 Expected date of discharge: 02/14/19 Attending physician: Kesha Perez Primary care physician: Stated None - Discharge Diagnosis(es) (1) S/P section Current Visit: Yes Status: Acute Hospital Course: The patient is a 28-year-old 2 para 0010 admitted at 39-0/7 weeks for induction of labor secondary to severe IUGR with an unfavorable cervix. She is admitted for Cervidil cervical ripening with the subsequent Pitocin. After placement of the Cervidil, the patient had 2 separate bradycardic events prompting removal of the Cervidil. As she was still remote from delivery with the diagnoses as noted above and the suspicion that the fetus would not tolerate labor, she was counseled and taken the operating room she underwent a primary low-transverse section and an incompetent fashion and was delivered of a viable 5 lbs. 6 oz. baby boy with Apgars of 9 at 1 minute and 9 at 5 minutes. Her postoperative course has been unremarkable with vital signs remaining stable and her temperature has been afebrile throughout. Her was kept in the nursery secondary to concerns for possible drug exposure and reportedly did have a positive screen for methamphetamines. The patient has denied any use of methamphetamines or any other drug she did use marijuana early on in the pregnan cy. She has reportedly been giving a urine drug Samp on a weekly basis secondary to probationary reasons. In either case, she was deemed stable for discharge on postoperative day #4 was discharged home to follow-up in the office in 2 weeks for an incision check and 6 weeks routinely. Discharge instructions included calling for any significantly increased bleeding or foul-smelling lochia, significantly increased fever abdominal pain, perineal complaints, breast complaints, incisional complaints, or anything else that concerned her. She was additionally instructed to have nothing in the vagina for at least 6 weeks time to include intercourse and to abstain from any heavy lifting over the same period of time perches last instructed to do no driving until off of all pain medications or 2 weeks' time, whichever came first. She understood all of her instructions and agrees to follow up as noted above. Discharge medications included only lndr-riw-ddlafwu analgesic pain medications as needed as well as continued vitamins as she has opted to breast-feed. Maternal blood type is A+ and rubella status is nonimmune and she therefore was to receive the MMR vaccination prior to discharge. Discharge hemoglobin and hematocrit were 11.3 and 32.8 respectively. Procedures: #1. Cervidil cervical ripening #2. Primary low-transverse section Patient Condition at Discharge: Stable Plan - Discharge Summary New Discharge Prescriptions: No Action Pnv No.95/Ferrous Fum/Folic AC [ Multivitamin Tablet] 1 tab PO DAILY Discharge Medication List Pnv No.95/Ferrous Fum/Folic AC [ Multivitamin Tablet] 1 tab PO DAILY 06/30/18 [History] Follow up Appointment(s)/Referral(s): Francis Morgan MD [STAFF PHYSICIAN] - 2 Weeks Discharge Disposition: HOME SELF-CARE
== END 2019-02-14 14:45 | disposition home or self-care (01) | DRG 788 ==
LOC: 4FBP 12:19
PROVIDERS: ADMIT Obstetrics & Gynecology; ATTEND Obstetrics & Gynecology
PROC: 3E033VJ Introduction of Other Hormone into Peripheral Vein, Percutaneous Approach (ICD-10-PCS; 2019-02-10)
PROC: 10907ZC Drainage of Amniotic Fluid, Therapeutic from Products of Conception, Via Natural or Artificial Opening (ICD-10-PCS; 2019-02-10)
PROC: 3E0P7VZ Introduction of Hormone into Female Reproductive, Via Natural or Artificial Opening (ICD-10-PCS; 2019-02-10)
PROC: 10D00Z1 Extraction of Products of Conception, Low, Open Approach (ICD-10-PCS; principal; 2019-02-10 18:29)
DX: O36.5930 Maternal care for other known or suspected poor fetal growth, third trimester, not applicable or unspecified (principal); O40.2XX0 Polyhydramnios, second trimester, not applicable or unspecified; O76 Abnormality in fetal heart rate and rhythm complicating labor and delivery; O99.824 Streptococcus B carrier state complicating childbirth; O99.334 Smoking (tobacco) complicating childbirth; F17.200 Nicotine dependence, unspecified, uncomplicated; Z37.0 Single live birth; Z3A.39 39 weeks gestation of pregnancy; Z79.899 Other long term (current) drug therapy; Z86.14 Personal history of Methicillin resistant Staphylococcus aureus infection
CPT/HCPCS: 80306; 85025; 86850; 86900; 86901; 88307; 90707

== ENCOUNTER 2020-04-15 12:55 | Emergency (ER) | payer OTHER ==
[2020-04-15 13:03] VITALS: BP 109/73; TEMP 98.1
[2020-04-15] MEDS ORDERED: ACET/COD 300 MG/30 MG STARTER PACK 6 TAB BTL PO STA (13:28)
--- NOTE | 2020-04-15 13:28 | ED ---
ENT HPI - General Chief complaint: Dental/Oral Stated complaint: Dental Pain Time Seen by Provider: 04/15/20 13:07 Source: patient, RN notes reviewed, old records reviewed Mode of arrival: ambulatory Limitations: no limitations - History of Present Illness Initial comments: 29-year-old female presents emergency room today with right upper and lower dent al pain. She believes related to incoming molars. Patient states that she try to follow-up with an oral surgeon but they do not take her insurance. She reports they're now breaking the skin and causing irritation. Patient states that she's had no pus or drainage. Denies trismus. Patient reports no other significant complaints. - Related Data Home Medications Medication Instructions Recorded Confirmed Pnv No.95/Ferrous Fum/Folic AC 1 tab PO DAILY 06/30/18 01/19/19 [ Multivitamin Tablet] Allergies Allergy/AdvReac Type Severity Reaction Status Date / Time No Known Allergies Allergy Verified 04/15/20 13:03 Review of Systems ROS Statement: Those systems with pertinent positive or pertinent negative responses have been documented in the HPI. ROS Other: All systems not noted in ROS Statement are negative. Past Medical History Past Medical History: No Reported History History of Any Multi-Drug Resistant Organisms: MRSA Date of last positivie culture/infection: 2003 MDRO Source:: leg Past Surgical History: No Surgical Hx Reported Past Anesthesia/Blood Transfusion Reactions: No Reported Reaction Past Psychological History: Depression Past Drug Use History: Marijuana - Past Family History Father History Unknown: Yes Family Medical History: Renal Disease General Exam - General Exam Comments Initial Comments: Alert and oriented 29-year-old female. No distress Limitations: no limitations General appearance: alert, in no apparent distress Head exam: Present: atraumatic, normocephalic, normal inspection Eye exam: Present: normal appearance, PERRL, EOMI. Absent: scleral icterus, conjunctival injection, periorbital swelling ENT exam: Present: normal exam, mucous membranes moist, other (Evidence of impacted molars on for upper and lower teeth. Patient has no erythema. No signs of dental abscess.) Neck exam: Present: normal inspection. Absent: tenderness, meningismus, lymphadenopathy Respiratory exam: Present: normal lung sounds bilaterally. Absent: respiratory distress, wheezes, rales, rhonchi, stridor Cardiovascular Exam: Present: regular rate, normal rhythm, normal heart sounds. Absent: systolic murmur, diastolic murmur, rubs, gallop, clicks GI/Abdominal exam: Present: soft, normal bowel sounds. Absent: distended, tenderness, guarding, rebound, rigid Extremities exam: Present: normal inspection, full ROM, normal capillary refill. Absent: tenderness, pedal edema, joint swelling, calf tenderness Back exam: Present: normal inspection Neurological exam: Present: alert Course Vital Signs 04/15/20 04/15/20 13:00 13:49 Temperature 98.1 F 98.1 F Pulse Rate 86 84 Respiratory 18 20 Rate Blood Pressure 109/73 109/73 O2 Sat by Pulse 98 98 Oximetry Medical Decision Making - Medical Decision Making Mzlwfeys-pzhw-agh female presents here today for further concern for dental pain. Patient's pain is related to impacted molars. Patient at this time has no signs of dental abscess erythema. No drainage. Discussed Patient needs follow up with an oral surgeon and have the tooth removed. Patient will be discharged with advice to use intermittent left her medicine and Orajel. Disposition Clinical Impression: Pain, dental, Tooth impaction Disposition: HOME SELF-CARE Condition: Good Instructions (If sedation given, give patient instructions): Toothache (ED) Additional Instructions: Advised to use Orajel over the area of irritation. Follow-up with Oral surgeon. Return to ED if any alarming signs or symptoms occur. Is patient prescribed a controlled substance at d/c from ED?: No Referrals: None,Stated [Primary Care Provider] - 1-2 days Denny Griffith DDS [STAFF PHYSICIAN] - 1-2 days Time of Disposition: 13:27
[2020-04-15 13:50] VITALS: PULSE 84; RESP 20
== END 2020-04-15 13:51 | disposition home or self-care (01) ==
LOC: EC 12:55
DX: K08.89 Other specified disorders of teeth and supporting structures (principal); K01.1 Impacted teeth
CPT/HCPCS: 99283

== ENCOUNTER 2021-05-20 13:21 | Emergency (ER) | payer OTHER ==
[2021-05-20 13:45] VITALS: TEMP 98.8
--- NOTE | 2021-05-20 16:02 | ED ---
URI HPI - General Chief Complaint: Upper Respiratory Infection Stated Complaint: Vomiting/Wants covid test Time Seen by Provider: 05/20/21 15:58 Source: patient, RN notes reviewed Mode of arrival: ambulatory Limitations: no limitations - History of Present Illness Initial Comments: patient is a 30-year-old female presenting to the emergency Department with complaints of a mild cough and congestion that started yesterday, worsened today. She is concerned for Covid and is requesting a covid test. She does admit history of mild asthma. She denies any chest pains but she does have some burning when she coughs. No shortness of breath, no nausea or vomiting or diarrhea. She denies being . She is no further complaints. Her vital signs are stable upon arrival. - Related Data Home Medications Medication Instructions Recorded Confirmed Pnv No.95/Ferrous Fum/Folic AC 1 tab PO DAILY 06/30/18 01/19/19 [ Multivitamin Tablet] Previous Rx's Medication Instructions Recorded methylPREDNISolone [Medrol Dose 4 mg PO DIRECTED #1 packet 05/20/21 Pack] Allergies Allergy/AdvReac Type Severity Reaction Status Date / Time No Known Allergies Allergy Verified 04/15/20 13:03 Review of Systems ROS Statement: Those systems with pertinent positive or pertinent negative responses have been documented in the HPI. ROS Other: All systems not noted in ROS Statement are negative. Past Medical History Past Medical History: No Reported History History of Any Multi-Drug Resistant Organisms: MRSA Date of last positivie culture/infection: 2003 MDRO Source:: leg Past Surgical History: No Surgical Hx Reported Past Anesthesia/Blood Transfusion Reactions: No Reported Reaction Past Psychological History: Depression Smoking Status: Current some day smoker Past Drug Use History: Marijuana - Past Family History Father History Unknown: Yes Family Medical History: Renal Disease General Exam - General Exam Comments Initial Comments: GENERAL: Patient is well-developed and well-nourished. Patient is nontoxic and in no acute distress. HEAD: Atraumatic, normocephalic. EYES: Pupils equal round and reactive to light, extraocular movements intact, sclera anicteric, conjunctiva are normal. Eyelids were unremarkable. ENT: Moist mucous membranes. NECK: Normal range of motion, supple without lymphadenopathy or JVD. LUNGS: Unlabored respirations. Very mild wheezes scattered in the upper tariq. HEART: Regular rate and rhythm without murmurs, rubs or gallops. ABDOMEN: Soft, nontender, normoactive bowel sounds. No guarding, no rebound. No masses appreciated. MUSCULOSKELETAL: Normal extremities with adequate strength and normal range of motion, no pitting or edema. No clubbing or cyanosis. NEUROLOGICAL: Patient is alert and oriented x 3. SKIN: Warm, Dry, normal turgor, no rashes or lesions noted. Limitations: no limitations Course Vital Signs 05/20/21 13:38 Temperature 98.8 F Pulse Rate 79 Respiratory 16 Rate Blood Pressure 109/67 O2 Sat by Pulse 100 Oximetry Medical Decision Making - Medical Decision Making patient is a 22-year-old female here with viral type symptoms since yesterday. She is requesting a covid test. Her rapid test is negative. She has had some very mild wheezes on exam, this is most likely viral nature. I will prescribe her a short course of steroids. She can follow up with her primary care. She is agreeable to this plan of care and she is stable for discharge. - Lab Data Lab Results 05/20/21 Range/Units 13:47 Coronavirus (PCR) Not Detected (Not Detectd) Disposition Clinical Impression: Viral respiratory illness Disposition: HOME SELF-CARE Condition: Stable Instructions (If sedation given, give patient instructions): Upper Respiratory Infection (ED) Additional Instructions: Please return to the Emergency Department if symptoms worsen or any other concerns. Take steroids as prescribed. Follow-up with your primary care as needed. Prescriptions: methylPREDNISolone [Medrol Dose Pack] 4 mg PO DIRECTED #1 packet Is patient prescribed a controlled substance at d/c from ED?: No Referrals: Trae Hudson MD [Primary Care Provider] - 1-2 days Time of Disposition: 16:01
[2021-05-20 16:20] VITALS: BP 133/76; PULSE 98; RESP 19
== END 2021-05-20 16:19 | disposition home or self-care (01) ==
LOC: EC 13:21
DX: J06.9 Acute upper respiratory infection, unspecified (principal); Z20.822 Contact with and (suspected) exposure to COVID-19; F17.200 Nicotine dependence, unspecified, uncomplicated; F12.90 Cannabis use, unspecified, uncomplicated
CPT/HCPCS: 87635; 99283

== ENCOUNTER 2021-07-24 19:41 | Emergency (ER) | payer OTHER ==
[2021-07-24 20:28] VITALS: RESP 20
--- NOTE | 2021-07-24 21:32 | ED ---
Fever HPI - General Chief Complaint: Fever Stated Complaint: Fever,irregular vaginal bleeding Time Seen by Provider: 07/24/21 21:32 Source: patient Mode of arrival: ambulatory Limitations: no limitations - History of Present Illness Initial Comments: This patient is a 30-year-old woman who presents to be evaluated because she is having fever, chills, bodyaches and cough. The symptoms had started this morning. She was concerned she may have coronavirus. Patient denies chest pain, dyspnea, abdominal pain, vomiting or diarrhea. On the review of systems, the patient states she may be but is not sure. She states she kelly week late on her menstrual cycle. She was concerned that she took a test Wednesday,(positive) but she did start bleeding yesterday. MD Complaint: fever Onset/Timin -: days(s) Context: sick contacts Associated Symptoms: cough Treatments Prior to Arrival: none - Related Data Home Medications Medication Instructions Recorded Confirmed Acetaminophen Tab [Tylenol Tab] 500 mg PO Q6H PRN 07/24/21 07/24/21 Allergies Allergy/AdvReac Type Severity Reaction Status Date / Time No Known Allergies Allergy Verified 07/24/21 21:58 Review of Systems ROS Statement: Those systems with pertinent positive or pertinent negative responses have been documented in the HPI. ROS Other: All systems not noted in ROS Statement are negative. Constitutional: Reports: fever ENT: Denies: throat pain Respiratory: Reports: cough Cardiovascular: Denies: chest pain, palpitations Gastrointestinal: Denies: abdominal pain, vomiting, diarrhea Genitourinary: Reports: abnormal menses. Denies: dysuria, hematuria Musculoskeletal: Denies: back pain Skin: Denies: rash Neurological: Reports: headache Past Medical History Past Medical History: No Reported History History of Any Multi-Drug Resistant Organisms: MRSA Date of last positivie culture/infection: 2003 MDRO Source:: leg Past Surgical History: No Surgical Hx Reported Past Anesthesia/Blood Transfusion Reactions: No Reported Reaction Past Psychological History: Depression Smoking Status: Current some day smoker Past Alcohol Use History: Occasional Past Drug Use History: Marijuana - Past Family History Father History Unknown: Yes Family Medical History: Renal Disease General Exam Limitations: no limitations General appearance: alert, in no apparent distress Head exam: Present: atraumatic, normocephalic Eye exam: Present: normal appearance Respiratory exam: Present: normal lung sounds bilaterally. Absent: respiratory distress, wheezes, rales, rhonchi, stridor Cardiovascular Exam: Present: regular rate, normal rhythm, normal heart sounds. Absent: systolic murmur, diastolic murmur, rubs, gallop GI/Abdominal exam: Present: soft. Absent: distended, tenderness, guarding, rebound, rigid, mass Extremities exam: Present: normal inspection, normal capillary refill. Absent: pedal edema, calf tenderness Back exam: Present: normal inspection. Absent: CVA tenderness (R), CVA tenderness (L) Neurological exam: Present: alert Skin exam: Present: warm, dry, intact, normal color. Absent: rash Course Vital Signs 07/24/21 07/25/21 20:24 00:18 Temperature 100.6 F H 100.5 F H Pulse Rate 103 H 86 Respiratory 20 20 Rate Blood Pressure 98/67 108/62 O2 Sat by Pulse 99 100 Oximetry Medical Decision Making - Lab Data Lab Results 07/24/21 07/24/21 07/24/21 Range/Units 20:30 21:55 21:55 HCG, Quant <2.4 mIU/mL Coronavirus (PCR) Detected A (Not Detectd) Blood Type A Positive Blood Type Recheck A Pos Bld Type Recheck Status No Disposition Clinical Impression: COVID-19 Disposition: HOME SELF-CARE Condition: Good Instructions (If sedation given, give patient instructions): Coronavirus Disease 2019 (COVID-19) Is patient prescribed a controlled substance at d/c from ED?: No Referrals: Trae Hudson MD [Primary Care Provider] - 1-2 days
[2021-07-25 00:19] VITALS: BP 108/62; PULSE 86; TEMP 100.5
[2021-07-25] MEDS ORDERED: IBUPROFEN 600 MG STARTER PACK 4 TAB BTL PO STA (00:45)
== END 2021-07-25 00:55 | disposition home or self-care (01) ==
LOC: EC 19:41
DX: U07.1 COVID-19 (principal); F32.A Depression, unspecified; F17.200 Nicotine dependence, unspecified, uncomplicated; F12.90 Cannabis use, unspecified, uncomplicated
CPT/HCPCS: 36415; 84702; 86900; 86901; 87635; 99283

== ENCOUNTER 2022-02-28 15:42 | Outpatient (CLI) | payer OTHER ==
[2022-02-28 17:11] VITALS: BP 112/61; PULSE 91; RESP 16; TEMP 98.3
--- NOTE | 2022-03-01 07:03 | P.MSEPDOC ---
Presenting Problems - Arrival Data Date of Arrival on Unit: 02/28/22 Time of Arrival on Unit: 15:43 Mode of Transport: Ambulatory - Complaint OB-Reason for Admission/Chief Complaint: Other Comment: pt c/o tenderness in upper abd area under breast area and also c/o itchy in same area Medical History - Information : 4 Para: 1 Term: 1 : 0 Abortions: Spontaneous or Elective: 2 Number of Living Children: 1 - Gestational Age Gestational Age by DALJIT (wks/days): 32 Weeks and 0 Days Review of Systems - Review of Systems Constitutional: No problems Breast: No problems ENT: No problems Cardiovascular: No problems Respiratory: No problems Gastrointestinal: No problems Genitourinary: No problems Musculoskeletal: No problems Neurological: No problems Skin: No problems Vital Signs - Temperature Temperature: 98.3 F Temperature Source: Oral - Pulse Right Brachial Pulse Rate: 91 Pulse Assessment Method: Automatic Cuff - Respirations Respiratory Rate: 16 Oxygen Delivery Method: Room Air O2 Sat by Pulse Oximetry: 98 - Blood Pressure Right Arm Blood Pressure: 112/61 Blood Pressure Mean: 78 Blood Pressure Source: Automatic Cuff Medical Screen Scoring - Cervical Exam Dilation (cm): 0 Effacement (%): 50 Station: -2 Membranes: Intact - Uterine Contractions Frequency From (mins): 0 Frequency To (mins): 0 Duration From (seconds): 0 Resting: Soft to palpation - Assessment - Baby A Baseline FHR: 120 Heart Rate - NICHD Category: Category I (Normal) NST: Reactive Physician Notification - Physician Notified Physician Notified Date: 02/28/22 Physician Notified Time: 16:56 Physician: DR HERNÁNDEZ New Order Received: Yes - Notification Comment Comment: MAY DISCHARGE PT TO HOME WITH INSTRUCTIONS Maternal Triage Index - Non-Urgent/Priority 4 Non-Urgent Priority 4: Yes Criteria Met for Priority 4: pt 32 weeks presented to triage c/o tenderness in upper abd area under breast and area being itchy. v/s stable reactive NST Disposition - Disposition OB Disposition: Discharge to home Discharge Date: 02/28/22 Discharge Time: 17:02 I agree with the RN Medical Screening Exam: Yes Case reviewed; plan agreed upon as documented in EMR&OBIX.: Yes Diagnosis: RELATED CONDITIONS, UNSPECIFIED, THIRD TRIMESTER
== END 2022-02-28 17:02 | disposition home or self-care (01) ==
LOC: FBPOP 15:42
PROVIDERS: ATTEND Obstetrics & Gynecology
DX: O26.893 Other specified pregnancy related conditions, third trimester (principal); R10.819 Abdominal tenderness, unspecified site; Z3A.32 32 weeks gestation of pregnancy
CPT/HCPCS: 59025; G0463; 99213

== ENCOUNTER 2022-04-30 06:30 | Inpatient (IN) | payer OTHER ==
[2022-04-30] MEDS ORDERED: CITRIC ACID-SODIUM CITRATE 15 ML CUP PO ONE (10:13)
[2022-04-30 10:25] LABS: Basophils % (A) 0 %; Eosinophils # (A) 0.1 k/uL (0-0.7); Eosinophils % (A) 1 %; HCT 34.8 % (34.0-46.0); HGB 12.3 gm/dL (11.4-16.0); Lymphocytes # (A) 2.2 k/uL (1.0-4.8); Lymphocytes % (A) 21 %; MCHC 35.2 g/dL (31.0-37.0); MCV 96.4 fL (80.0-100.0); Mean Platelet Volume 8.2; Monocytes # (A) 0.4 k/uL (0-1.0); Monocytes % (A) 4 %; Neutrophils # (A) 7.6 k/uL (1.3-7.7); Neutrophils % (A) 72 %; Platelet Count 341 k/uL (150-450); RBC 3.61 m/uL (3.80-5.40); RDW 12.5 % (11.5-15.5); WBC 10.5 k/uL (3.8-10.6)
[2022-04-30] MEDS: LACTATED RINGERS 1,000 ML IV SCH ×2 (10:57→16:46)
[2022-04-30 11:47] LABS: Amphetamine Screen,Urine Not Detected (NotDetected); Barbiturate Screen,Urine Not Detected (NotDetected); Benzodiazepines Screen,Urine Not Detected (NotDetected); Cocaine Screen,Urine Not Detected (NotDetected); Methadone Screen, Urine Not Detected (NotDetected); Opiate Screen,Urine Not Detected (NotDetected); Oxycodone Screen, Urine Not Detected (NotDetected); Phencyclidine Screen,Urine Not Detected (NotDetected); Tricyclic Antidepressant,Urine Not Detected (NotDetected); Urn Cannabinoid Scrn Detected (NotDetected)
[2022-04-30] MEDS ORDERED: ONDANSETRON 4 MG/2 ML VIAL ONE (12:18)
[2022-04-30] MEDS ORDERED: diphenhydrAMINE 50 MG/ML 1 ML VIAL ONE (12:18)
[2022-04-30] MEDS ORDERED: KETOROLAC 15 MG/ML 1 ML VIAL ONE (12:18)
[2022-04-30] MEDS ORDERED: DEXAMETHASONE SOD PHOSPHATE 10 MG/ML 1 ML VIAL ONE (12:18)
[2022-04-30] MEDS ORDERED: NALBUPHINE 10 MG/ML (1 ML AMP) ONE (12:18)
[2022-04-30] MEDS ORDERED: OXYTOCIN 30 UNITS/500 ML NS BAG IV ONE (12:18)
[2022-04-30] MEDS ORDERED: MORPHINE SULFATE (PF) 0.3 MG/0.3 ML SYR ONE (12:18)
[2022-04-30] MEDS ORDERED: diphenhydrAMINE 50 MG/ML 1 ML VIAL IVP PRN ×2 (13:00)
[2022-04-30] MEDS ORDERED: ONDANSETRON 4 MG/2 ML VIAL IVP PRN (13:00)
[2022-04-30] MEDS ORDERED: LANOLIN CREAM 5 GM TUBE TOPICAL PRN (13:00)
[2022-04-30] MEDS ORDERED: METOCLOPRAMIDE 5 MG/ML 2 ML VIAL IVP PRN (13:00)
[2022-04-30] MEDS ORDERED: diphenhydrAMINE 50 MG CAP PO PRN (13:00)
[2022-04-30] MEDS ORDERED: ZOLPIDEM 5 MG TAB PO PRN (13:00)
[2022-04-30] MEDS ORDERED: NALOXONE 0.4 MG/ML 1 ML VIAL IV PRN (13:00)
[2022-04-30] MEDS ORDERED: OXYTOCIN 30 UNITS/500 ML NS 30 UNIT in SALINE 1 500ML.BAG IV SCH (13:00)
[2022-04-30] MEDS ORDERED: diphenhydrAMINE 25 MG CAP PO PRN (13:00)
[2022-04-30] MEDS ORDERED: SIMETHICONE 80 MG CHEWABLE PO PRN (13:00)
--- NOTE | 2022-04-30 13:04 | P.OP ---
Date of Procedure: 04/30/22 Preoperative Diagnosis: 1. at 40 weeks 5 days 2. previous Postoperative Diagnosis: same Procedure(s) Performed: Repeat low transverse Anesthesia: spinal Surgeon: Samira Gonzales Senior Treasury Analyst #1: Kelsie Putnam Estimated Blood Loss (ml): 520 IV fluids (ml): 500 Urine output (ml): 100 Pathology: none sent Condition: stable Disposition: floor Operative Findings: Normal uterus, tubes, ovaries. Omental adhesions in the midline. Viable female, Apgars 9, 9, weight 6 lbs. 15 oz. Description of Procedure: Patient was taken to the operating room where spinal anesthesia was found be adequate. She was prepped and draped in normal sterile fashion in dorsal supine position with a leftward tilt. Pfannenstiel skin incision was made the scalpel and carried through to the underlying layer of fascia with the scalpel. Fascia was incised in midline and carried bilaterally with the Love scissors. The superior aspect of the fascial incision was grasped with Gulliver clamps elevated and the underlying rectus muscles dissected off with the Love's. Attention was then turned to inferior aspect of same incision which in a similar fashion was grasped tented up and the underlying rectus muscles dissected off with the Love's. The rectus muscles were the midline and the peritoneum was identified tented up and entered sharply with the scalpel. The incision was extended superiorly and inferiorly with good visualization of the bladder. Some omental adhesions were taken down from the left side of the peritoneal incision. The bladder blade was inserted and the vesicouterine peritoneum which was pulled up and the anterior uterus, was incised the Metzenbaums then carried bilaterally and bladder flap created digitally. A low transverse incision was t hen made on the uterus with the scalpel. This was carried bilaterally and digital manner. 's head delivered atraumatically, nose and mouth bulb suctioned, cord clamped and cut, infant handed off to waiting nurses. Apgars 9,9, weight 6 lbs. 15 oz. Placenta delivered manually, intact with three-vessel cord. The uterus is exteriorized and cleared of all clots and debris. The uterine incision was closed with 0 Vicryl in a running locked fashion. Second layer of the same sutures used in imbricating fashion to obtain excellent hemostasis. Both ovaries and tubes appeared normal. The uterus was placed back into the abdomen. The peritoneum was reapproximated using 2-0 Vicryl in a running fashion. The muscles were reapproximated using 2-0 Vicryl in interrupted fashion. The fascia was reapproximated using 0 Vicryl in a running fashion. The subcutaneous tissues closed with 3-0 Vicryl running fashion. The skin was closed gómez. Patient tolerated the procedure well, sponge and instrument counts were correct times 2 and she was taken to the recovery room in stable condition.
--- NOTE | 2022-04-30 13:06 | P.HPOB ---
History of Present Illness H&P Date: 04/30/22 Chief Complaint: repeat low transverse 31 year old presents at 40 weeks 5 days for repeat low transverse c- section. Review of Systems All systems: negative Constitutional: Denies chills, Denies fever Eyes: denies blurred vision, denies pain Ears, nose, mouth and throat: Denies headache, Denies sore throat Cardiovascular: Denies chest pain, Denies shortness of breath Respiratory: Denies cough Gastrointestinal: Denies abdominal pain, Denies diarrhea, Denies nausea, Denies vomiting Genitourinary: Denies dysuria, Denies hematuria Musculoskeletal: Denies myalgias Integumentary: Denies pruritus, Denies rash Neurological: Denies numbness, Denies weakness Psychiatric: Denies anxiety, Denies depression Endocrine: Denies fatigue, Denies weight change Past Medical History Past Medical History: No Reported History History of Any Multi-Drug Resistant Organisms: MRSA Date of last positivie culture/infection: 2003 MDRO Source:: leg Past Surgical History: Section Past Anesthesia/Blood Transfusion Reactions: No Reported Reaction Past Psychological History: Depression Smoking Status: Current every day smoker - Past Family History Father History Unknown: Yes Family Medical History: Renal Disease Medications and Allergies Home Medications Medication Instructions Recorded Confirmed Type Vit No.179/Iron/Folic 1 each PO DAILY 02/28/22 04/30/22 History [ Tablet] Allergies Allergy/AdvReac Type Severity Reaction Status Date / Time No Known Allergies Allergy Verified 02/28/22 16:02 Exam Osteopathic Statement: *. No significant issues noted on an osteopathic struct ural exam other than those noted in the History and Physical/Consult. Vital Signs Temp Pulse Resp BP 04/30/22 10:12 97.4 F L 71 18 103/58 Intake and Output 04/29/22 04/30/22 04/30/22 22:59 06:59 14:59 Other: Weight 71.668 kg Heart: Regular rate and rhythm Lungs: Clear to auscultation bilaterally Abdomen: Soft, nontender Extremities: Negative Homans sign Results Result Diagrams: 04/30/22 10:10 Abnormal Lab Results - Last 24 Hours (Table) 04/30/22 04/30/22 Range/Units 10:10 11:00 RBC 3.61 L (3.80-5.40) m/uL U Marijuana (THC) Screen Detected H (NotDetected) Assessment and Plan (1) 40 weeks gestation of Current Visit: Yes Status: Acute Code(s): Z3A.40 - 40 WEEKS GESTATION OF SNOMED Code(s): 82817617 (2) Previous section Current Visit: Yes Status: Acute Code(s): Z98.891 - HISTORY OF UTERINE SCAR FROM PREVIOUS SURGERY SNOMED Code(s): 632544403 Plan: 1. repeat low transverse
[2022-04-30] MEDS: ACETAMINOPHEN TAB 500 MG TAB PO SCH (14:59)
[2022-04-30] MEDS: SENNOSIDES-DOCUSATE SODIUM 1 EACH TAB PO SCH (20:29)
[2022-04-30] MEDS: IBUPROFEN 600 MG TAB PO SCH (20:30)
[2022-05-01] MEDS: ACETAMINOPHEN TAB 500 MG TAB PO SCH ×5 (02:18→21:57)
[2022-05-01] MEDS: IBUPROFEN 600 MG TAB PO SCH ×4 (02:18→22:18)
[2022-05-01 06:25] LABS: Basophils % (A) 0 %; Eosinophils # (A) 0.1 k/uL (0-0.7); Eosinophils % (A) 1 %; HCT 31.7 % (34.0-46.0); Lymphocytes # (A) 2.9 k/uL (1.0-4.8); Lymphocytes % (A) 16 %; MCHC 34.8 g/dL (31.0-37.0); MCV 97.6 fL (80.0-100.0); Mean Platelet Volume 8.2; Monocytes # (A) 0.8 k/uL (0-1.0); Monocytes % (A) 4 %; Neutrophils # (A) 13.9 k/uL (1.3-7.7); Neutrophils % (A) 77 %; Platelet Count 316 k/uL (150-450); RBC 3.25 m/uL (3.80-5.40); RDW 12.3 % (11.5-15.5); WBC 17.9 k/uL (3.8-10.6)
--- NOTE | 2022-05-01 08:10 | P.PN ---
Progress Note - Text Progress Note Date: 05/01/22 Postop day 1 from under spinal anesthesia with intrathecal morphine given for postop pain management. Patient is doing well. Pain is well controlled. On visual analog scale 4/10 Mild itching present No nausea or vomiting reported. No Headache or weakness and numbness in the legs. No complications from spinal anesthesia.
[2022-05-01] MEDS: SENNOSIDES-DOCUSATE SODIUM 1 EACH TAB PO SCH ×2 (08:11→19:37)
--- NOTE | 2022-05-01 08:53 | P.PNOBGPC ---
Subjective - Subjective Principal diagnosis: Status post repeat low transverse postop day #1 Interval history: Seen and examined. Denies nausea, vomiting, chest pain, shortness of breath or any calf pain. Patient reports: Reports appetite normal, Reports voiding normally, Reports pain well controlled, Reports ambulating normally [place]: doing well Objective - Vital Signs Latest vital signs: Vital Signs Temp Pulse Resp BP Pulse Ox 05/01/22 08:00 98.3 F 60 18 84/53 05/01/22 04:00 98.3 F 54 L 15 93/62 99 05/01/22 00:00 98.3 F 57 L 15 100/56 94 L 04/30/22 20:00 98.3 F 54 L 16 98/63 04/30/22 15:00 97.0 F L 66 18 109/59 100 04/30/22 14:30 53 L 18 98/53 99 04/30/22 14:00 96.6 F L 70 18 95/50 99 04/30/22 13:45 96.7 F L 60 18 102/57 99 04/30/22 13:30 97.4 F L 62 18 98/55 99 04/30/22 13:15 97.5 F L 61 18 97/55 100 04/30/22 13:00 97.8 F 71 18 101/54 100 04/30/22 10:12 97.4 F L 71 18 103/58 Intake and Output 04/30/22 05/01/22 05/01/22 22:59 06:59 14:59 Intake Total 480 480 Output Total 1300 Balance -820 480 Intake: Oral 480 480 Output: Urine 1300 Uretheral (Watson) 500 Other: # Voids 2 - Exam Lungs: bilateral: normal Chest: Normal S1, Normal S2 Extremities: Present: normal Abdomen: Present: normal appearance, soft. Absent: distention, tenderness Incision: Present: normal, dry, intact Uterus: Present: normal, firm - Labs Labs: Abnormal Lab Results - Last 24 Hours (Table) 04/30/22 04/30/22 05/01/22 Range/Units 10:10 11:00 06:08 WBC 17.9 H (3.8-10.6) k/uL RBC 3.61 L 3.25 L (3.80-5.40) m/uL Hgb 11.0 L (11.4-16.0) gm/dL Hct 31.7 L (34.0-46.0) % Neutrophils # 13.9 H (1.3-7.7) k/uL U Marijuana (THC) Screen Detected H (NotDetected) Assessment and Plan (1) 40 weeks gestation of Current Visit: Yes Status: Resolved Code(s): Z3A.40 - 40 WEEKS GESTATION OF SNOMED Code(s): 20029191 (2) Previous section Current Visit: Yes Status: Resolved Code(s): Z98.891 - HISTORY OF UTERINE SCAR FROM PREVIOUS SURGERY SNOMED Code(s): 957186564 (3) Status post repeat low transverse section Current Visit: Yes Status: Acute Code(s): Z98.891 - HISTORY OF UTERINE SCAR FROM PREVIOUS SURGERY SNOMED Code(s): 366243287 Plan: 1. Increase ambulation 2. Pain control
[2022-05-01] MEDS: LACTATED RINGERS 1,000 ML IV SCH ×2 (20:52→20:53)
--- NOTE | 2022-05-02 12:13 | P.PNOBGPC ---
Subjective - Subjective Patient reports: Reports appetite normal, Reports voiding normally, Reports pain well controlled, Reports ambulating normally : doing well Objective - Vital Signs Latest vital signs: Vital Signs Temp Pulse Resp BP BP Pulse Ox 05/02/22 00:00 98.2 F 68 16 92/56 99 05/01/22 19:44 98.4 F 63 16 98/49 99 05/01/22 16:00 98.3 F 78 16 109/68 - Exam Lungs: bilateral: normal Chest: Normal S1, Normal S2 Extremities: Present: normal Abdomen: Present: normal appearance, soft. Absent: distention, tenderness Incision: Present: normal, dry, intact Uterus: Present: normal, firm Assessment and Plan Assessment: Postoperative day #2. Patient is resting without complaints and wishes to go home. Vital signs are stable she is afebrile. Uterus is firm nontender and her incision is intact and dry. My impression this is a normal postoperative course. Plan is to continue routine postoperative care discharge home later this morning. (1) Status post repeat low transverse section Current Visit: Yes Status: Acute Code(s): Z98.891 - HISTORY OF UTERINE SCAR FROM PREVIOUS SURGERY SNOMED Code(s): 194232632
--- NOTE | 2022-05-02 12:16 | P.DS ---
Providers Date of admission: 04/30/22 09:50 Expected date of discharge: 05/02/22 Attending physician: Samira Gonzales Primary care physician: Stated None - Discharge Diagnosis(es) (1) Status post repeat low transverse section Current Visit: Yes Status: Acute Hospital Course: Please see dictated H&P for intimate details of this patient's admission. Brief summary this is a 31-year-old 2 para 1 female estimated gestational age 40-5/7 weeks who is admitted to labor and delivery for elective repeat section. Please see dictated operative note per Dr. Gonzales. Patient undergoes above-named surgery for a viable female . Postoperative patient does well postoperative and 2 spell to be stable for discharge home follow up with Dr. Gonzales in 1 week. Procedures: Repeat low transverse section Patient Condition at Discharge: Good Plan - Discharge Summary New Discharge Prescriptions: No Action Vit No.179/Iron/Folic [ Tablet] 1 each PO DAILY Discharge Medication List Vit No.179/Iron/Folic [ Tablet] 1 each PO DAILY 02/28/22 [History] Follow up Appointment(s)/Referral(s): Samira Gonzales DO [Doctor of Osteopathic Medicine] - 06/09/22 3:45 pm (Post Op appointment 05-13-2022 at 09:00) Patient Instructions/Handouts: (DC) Activity/Diet/Wound Care/Special Instructions: No heavy lifting or strenuous activity for 6 weeks. No intercourse or anything per vagina for 6 weeks. Please call if any fever, chills, excessive vaginal bleeding, and/or abdominal pain Discharge Disposition: HOME SELF-CARE
[2022-05-02 15:28] VITALS: BP 118/71; PULSE 94; RESP 14; TEMP 98.7
[2022-05-02] MEDS: ACETAMINOPHEN TAB 500 MG TAB PO SCH (15:32)
[2022-05-02] MEDS: SENNOSIDES-DOCUSATE SODIUM 1 EACH TAB PO SCH (15:32)
== END 2022-05-02 11:00 | disposition home or self-care (01) | DRG 788 ==
LOC: 4FBP 09:50
PROVIDERS: ADMIT Obstetrics & Gynecology; ATTEND Obstetrics & Gynecology
PROC: 10D00Z1 Extraction of Products of Conception, Low, Open Approach (ICD-10-PCS; principal; 2022-04-30 12:00)
DX: O34.211 Maternal care for low transverse scar from previous cesarean delivery (principal); F17.200 Nicotine dependence, unspecified, uncomplicated; K66.0 Peritoneal adhesions (postprocedural) (postinfection); O99.334 Smoking (tobacco) complicating childbirth; Z37.0 Single live birth; Z3A.40 40 weeks gestation of pregnancy
CPT/HCPCS: 80306; 85025; 86850; 86900; 86901